=== PATIENT | female | born 1990 | race Caucasian/White ===

== ENCOUNTER 2023-05-18 10:53 | Outpatient (CLI) | payer OTHER, SELFPAY ==
[2023-05-18 11:18] LABS: Hematocrit 37.1 % (37.0-47.0); Hemoglobin 11.4 g/dL (12.0-15.0); Mean Corpuscular HGB Conc 30.7 g/dl (32-36); Mean Corpuscular Hemoglobin 25.8 pg (26-34); Mean Corpuscular Volume 83.9 fl (80-100); Mean Platelet Volume 10.3 fl (7.4-10.4); Platelet Count Result 310 k/mm3 (150-375); Red Blood Count 4.42 M/mm3 (4.2-5.4); Red Cell Distribution Width 16.9 % (11.5-14.5); White Blood Count 4.7 K/mm3 (4.5-10.0)
[2023-05-18 11:34] LABS: Alanine Aminotransferase 24 U/L (6-35); Albumin Level 4.7 g/dL (3.5-5.1); Alkaline Phosphatase 59 U/L (38-126); Anion Gap 9 mmol/L (8-16); Aspartate Amino Transferase 38 U/L (14-36); Bilirubin,Total 0.5 mg/dL (0.2-1.3); Blood Urea Nitrogen 18 mg/dL (7-17); CRP < 0.5 mg/dL (<1.0); Calcium 9.2 mg/dL (8.4-10.2); Carbon Dioxide 26 mmol/L (22-30); Chloride 103 mmol/L (98-107); Estimated Glomerular Filt Rate > 60; Glucose 85 mg/dL (65-110); Potassium 4.1 mmol/L (3.4-5.0); Sodium 138 mmol/L (137-145)
[2023-05-18 11:55] LABS: Erythrocyte Sedimentation Rate 15 mm/hr (0-20)
[2023-05-24 00:48] LABS: Immunoglobulin A 174 mg/dL (47-310); TTG IGA AB <1.0 U/mL (<15.0)
== END 2023-05-18 10:54 | disposition home or self-care (01) ==
PROVIDERS: PCP Family Medicine; Visit Provider Nurse Practitioner
DX: R10.13 Epigastric pain (principal); R11.0 Nausea; R14.0 Abdominal distension (gaseous); T78.1XXA Other adverse food reactions, not elsewhere classified, initial encounter
CPT/HCPCS: 36415; 80053; 82784; 85027; 85652; 86003; 86140; 86364

== ENCOUNTER 2023-06-08 07:00 | Outpatient (NON) | payer OTHER, SELFPAY | END 2023-06-08 07:01 | disposition home or self-care (01) | PROVIDERS: PCP Family Medicine; Visit Provider Internal Medicine Gastroenterology | DX: T78.1XXA Other adverse food reactions, not elsewhere classified, initial encounter (principal) | CPT/HCPCS: 88305 ==

== ENCOUNTER 2023-06-08 08:14 | Day surgery (SDC) | payer OTHER, SELFPAY ==
[2023-05-23 11:47] VITALS: BMI 19.1
[2023-05-25 13:54] VITALS: BMI 18.8
--- NOTE | 2023-06-07 11:27 | P.PNAN_ITS ---
Anes - Initial Pre Proc Eval Procedure: Operation Date: 06/08/23 10:00 Proposed Procedures p Esophagogastroduodenoscopy - Martinez Mazariegos MD Date/Time: 06/07/23 11:27 Surgeon: Martinez Mazariegos MD Pre Op Diagnosis: Nausea,other adverse food reactions,not elsewhere Patient Data Age: 32 Gender: F Height: 1.51 m Weight: 43 kg Allergies Allergy/AdvReac Type Severity Reaction Status Date / Time No Known Allergies Allergy Verified 05/25/23 12:21 Home Medications Medication Instructions Recorded Confirmed Type fluoxetine 20 mg capsule See Rx Instructions PO DAILY #40 02/27/23 05/25/23 Rx caps Patient hx anesthesia problems: none Family hx anesthesia problems: none Results Review: All pre-operative results and documents have been reviewed as part of the pre- operative evaluation. [facility] Past Medical History Medical History Abdominal pain Anxiety Cerumen impaction Elevated AST (SGOT) Epigastric pain Exocrine pancreatic insufficiency Facial swelling Gastrointestinal food sensitivity Hypothyroidism Nausea Otitis externa in other diseases classified elsewhere, right ear PMDD (premenstrual dysphoric disorder) Postprandial bloating Screening for lipid disorders Family History Family History Father Family history of mental disorder Cerebrovascular accident Mother Family history of bipolar disorder Social History Social History Smoking status: Never smoker Second hand tobacco smoke exposure: No Alcohol intake: unknown Substance use: never Substance use type: does not use Living arrangements: with family Spiritual care concerns: No Anes - Eval Final PreProcedure Day of Procedure 06/07/23 11:27 Patient weight: normal Heart: regular rate and rhythm Lungs: clear to auscultation Airway: Mallampati scale class II Neurological: alert and oriented Last oral intake: >/= 8 hours ASA classification: II Emergent: no Anesthetic plan: proceed Anesthesia type and monitoring: general GIVS and standard monitoring Results Review: All pre-operative results and documents have been reviewed as part of the pre- operative evaluation. Informed Consent: The patient's anesthetic plan and its attendant risks and benefits were discussed with the patient/family/POA. Questions were solicited and answers provided to the satisfaction of the patient/family/POA.
--- NOTE | 2023-06-07 11:29 | WPDANESEPPF ---
Anes - Initial Pre Proc Eval Procedure: Operation Date: 06/08/23 10:00 Proposed Procedures p Esophagogastroduodenoscopy - Martinez Mazariegos MD Date/Time: 06/07/23 11:29 Surgeon: Martinez Mazariegos MD Pre Op Diagnosis: Nausea,other adverse food reactions,not elsewhere Patient Data Age: 32 Gender: F Height: 1.51 m Weight: 43 kg Allergies Allergy/AdvReac Type Severity Reaction Status Date / Time No Known Allergies Allergy Verified 06/08/23 09:00 Home Medications Medication Instructions Recorded Confirmed Type fluoxetine 20 mg capsule See Rx Instructions PO DAILY #40 02/27/23 06/08/23 Rx caps Patient hx anesthesia problems: none Family hx anesthesia problems: none Results Review: All pre-operative results and documents have been reviewed as part of the pre-operative evaluation. [facility] Past Medical History Medical History Abdominal pain Anxiety Cerumen impaction Elevated AST (SGOT) Epigastric pain Exocrine pancreatic insufficiency Facial swelling Gastrointestinal food sensitivity Hypothyroidism Nausea Otitis externa in other diseases classified elsewhere, right ear PMDD (premenstrual dysphoric disorder) Postprandial bloating Screening for lipid disorders Family History Family History Father Family history of mental disorder Cerebrovascular accident Mother Family history of bipolar disorder Social History Social History Smoking status: Never smoker Second hand tobacco smoke exposure: No Alcohol intake: unknown Substance use: never Substance use type: does not use Living arrangements: with family Spiritual care concerns: No Anes - Eval Final PreProcedure Day of Procedure 06/07/23 11:29 Patient weight: normal Heart: regular rate and rhythm Lungs: clear to auscultation Airway: Mallampati scale class II Neurological: alert and oriented Last oral intake: >/= 8 hours ASA classification: II Emergent: no Anesthetic plan: proceed Anesthesia type and monitoring: general GIVS and standard monitoring Results Review: All pre-operative results and documents have been reviewed as part of the pre-operative evaluation. Informed Consent: The patient's anesthetic plan and its attendant risks and benefits were discussed with the patient/family/POA. Questions were solicited and answers provided to the satisfaction of the patient/family/POA.
[2023-06-08 08:55] VITALS: BP 102/65; PULSE 70; RESP 20; TEMP 36.2; O2SAT 100
--- NOTE | 2023-06-08 09:07 | WPDHPUPDATE1 ---
History and Physical Update Update Date/Time: 06/08/23 09:07 History and Physical has been reviewed, including an updated exam of the patient. There are NO changes in the patient's condition. Risks, benefits, and alternatives have been discussed and questions answered. Patient agrees to proceed with procedure.
[2023-06-08] MEDS: LACTATED RINGERS 1,000 ML 150 ML IV CONT (09:16)
[2023-06-08 10:19] VITALS: BP 88/67; PULSE 52; RESP 14; O2SAT 100
[2023-06-08 10:29] VITALS: BP 102/66; PULSE 63; RESP 16; O2SAT 100
[2023-06-08 10:39] VITALS: BP 96/65; PULSE 68; RESP 16; O2SAT 100
--- NOTE | 2023-06-08 10:40 | WPDANESPN ---
Anes - Prog Note Post-Op Date/Time: 06/08/23 10:40 Cardiovascular status: normal Respiratory status: normal Airway patency: baseline Mental status: baseline Post-Op hydration status: normal Vital Signs: Last Vital Signs Temp 36.2 C L 06/08/23 08:55 Pulse 63 06/08/23 10:29 Resp 16 06/08/23 10:29 BP 102/66 06/08/23 10:29 Pulse Ox 100 06/08/23 10:29 O2 Del Method Room Air 06/08/23 10:29 Pain Score (VAS): 0 I/O: Intake & Output 06/07/23 06/08/23 06/08/23 23:59 07:59 15:59 Intake Total 150 Balance 150 Patient Feedback: Patient satisfied with anesthetic care.
== END 2023-06-08 10:48 | disposition home or self-care (01) ==
PROVIDERS: PCP Family Medicine; Visit Provider Internal Medicine Gastroenterology
PROC: 0DJ08ZZ Inspection of Upper Intestinal Tract, Via Natural or Artificial Opening Endoscopic (ICD-10-PCS; CPT 43235; principal; 2023-06-08 10:00)
DX: R10.13 Epigastric pain (principal); R11.0 Nausea
CPT/HCPCS: 43239